=== PATIENT | female | born 1960 | race Caucasian/White ===

== ENCOUNTER → 2022-05-31 13:38 | Outpatient (BNVA) | payer MEDICAID, SELFPAY | PROVIDERS: Visit Provider Urology | DX: N13.30 Unspecified hydronephrosis (principal); C90.00 Multiple myeloma not having achieved remission; Z96.0 Presence of urogenital implants; Q62.5 Duplication of ureter | CPT/HCPCS: 99202 ==

== ENCOUNTER 2022-06-05 09:46 | Outpatient (REF) | payer MEDICAID, SELFPAY ==
[2022-06-05 09:49] LABS: Urine Cytology See Pathology rpt
== END 2022-06-05 09:47 | disposition home or self-care (01) ==
LOC: HO.LNP 09:46
PROVIDERS: Visit Provider Urology
DX: N13.30 Unspecified hydronephrosis (principal)
CPT/HCPCS: 87086; 87088; 87186; 88112

== ENCOUNTER 2022-07-04 06:08 | Day surgery (SDC) | payer MEDICAID, SELFPAY ==
[2022-06-29 11:58] VITALS: BMI 34.1
--- NOTE | 2022-07-03 10:12 | P.CONAN_ITS ---
HPI - Anesthesia Eval Consult details Narrative: 61yo F for Bilateral Cystoscopy, Ureteroroscopy, Retro, Laser with stent exchange [facility] Active Problems Active Problems: All Active Problems (Updated 06/29/22 @ 12:03 by Rosibel Becerra, RENÉ) Hydronephrosis (Acute) Ureteral stent present (Acute) Duplicated left renal collecting system (Acute) Myeloma (Acute) Past Medical History Medical History Encounter for screening Essential hypertension GERD without esophagitis Hx: UTI (urinary tract infection) Hydronephrosis Hydroureter Multiple myeloma Peripheral neuropathy Type 2 diabetes mellitus Uses walker Surgical History Surgical History History of colon resection Hx of bariatric surgery Hx of bilateral oophorectomy Hx of colonoscopy Hx of cystoscopy S/P bilateral breast reduction S/P brachioplasty S/P panniculectomy Social History Social History Are you a primary mall plant caretaker to a significant other at home: No Do you presently have visiting nurse or other home services: Yes ([id number]) Patient Tobacco Use Status: Never used Tobacco Meds Allergies Allergy/AdvReac Type Severity Reaction Status Date / Time codeine AdvReac Unknown Nausea and Verified 07/04/22 06:26 Vomiting oxycodone AdvReac Unknown Nausea and Verified 07/04/22 06:26 Vomiting Home Medications Medication Instructions Recorded Confirmed Last Taken Type aspirin 81 mg tablet,delayed 81 mg PO DAILY 05/30/22 06/29/22 06/27/22 History release diphenhydramine HCl 25 mg tablet 100 mg PO BEDTIME PRN Insomnia 05/30/22 06/29/22 Unknown History (Benadryl Allergy) gabapentin 300 mg capsule 600 mg PO BEDTIME 05/30/22 06/29/22 Unknown History ibuprofen 200 mg tablet 400 mg PO Q6H PRN Pain 05/30/22 06/29/22 06/27/22 History latanoprost 0.005 % eye drops 1 drp ophthalmic (eye) BEDTIME 05/30/22 06/29/22 U nknown History lisinopril 5 mg tablet 5 mg PO DAILY 05/30/22 06/29/22 Unknown History lenalidomide 15 mg capsule See Rx Instructions .Route .COMPLEX 06/29/22 06/29/22 Unknown History (Revlimid) metformin 500 mg tablet 500 mg PO BID 06/29/22 06/29/22 Unknown History Exam Exam Date and Time: July 03, 2022 1012 Height,Weight and Vital Signs: Height 5 ft 5 in Weight 92.986 kg Narrative Narrative: EKG 06/2022 SR @ 81 LAFB Poor R wave progression, nonspecific, ? old anterior infarct Unchanged from 2010 Assessment and Plan Assessment Anesthesia Assessment: Chart Reviewed
[2022-07-04] VITALS (8 sets, daily range): BP systolic 106–140; BP diastolic 62–72; PULSE 68–82; RESP 16–18; TEMP 36.3–36.9; O2SAT 92–98
--- NOTE | ~2022-07-04 | FL_ITS ---
EXAMINATION: XR FLUOROSCOPY WITH IMAGES CLINICAL INFORMATION: Bilateral stones. COMPARISON: None available. TECHNIQUE: Fluoroscopy Supervised By: Dr. Easley. Fluoroscopy Time: 64.6 seconds. Cumulative Dose: 29.95 mGy. Images: 7. FINDINGS: There are 7 digital images obtained. There is contrast opacifying the right kidney pelvis and proximal ureter without any intraluminal filling defect. Duplicated pelvicalyceal system on the left with no intraluminal filling defect. The last image reveals bilateral ureteral stents with the distal ends in the bladder. The proximal ends are not in the [id number]. FL/FL guidance in OR IMPRESSION: Fluoroscopy guidance was provided to referring physician during retrograde pyelogram and intervention.
[2022-07-04 06:43] LABS: Glucose, Whole Blood 145 mg/dL (60-115)
[2022-07-04] MEDS: Lactated Ringers 1,000 ML 100 ML IVCONT (06:54)
--- NOTE | 2022-07-04 07:53 | P.HPSUR_ITS ---
Pre-Procedural Eval Section A Date of Service: 07/04/22 The patient is an INPATIENT: No Changes since office visit: No Cold of Flu in the past 2 weeks, No New Medical Problems, No Changes in Medication and No Patient answered all questions The History & Physical has been completed within 30 days and I have reviewed it.: No Section B Chief Complaint: Hydronephrosis Details of Present Illness: Tiana grier is a 61-year-old female h/o Multiple Myeloma on chemotherapy followed by Dr. Jones-Oncologist The patient has bilateral ureteral stents in place. I have reviewed referral notes which include operative note from 01/20/2022 --left duplicated system left ureteral stent placed into the upper pole moiety, --right hydronephrosis urothelial ureteral wall thickening unclear etiology discussed plan to evaluate and stent exchange. Relevant Family History (Specify if Yes): No Present Medications: see Short Stay Collaborative assessment Allergies: Allergies Allergy/AdvReac Type Severity Reaction Status Date / Time codeine AdvReac Unknown Nausea and Verified 07/04/22 06:26 Vomiting oxycodone AdvReac Unknown Nausea and Verified 07/04/22 06:26 Vomiting Review of Systems Sugical H&P ROS: Negative: Constitution, Cardiovascular, Respiratory, Neurological, Psychiatric, Gastrointestinal, Musculoskeletal and Eyes/Ears/Nose/Throat and Yes, Specify: Hem-Onc and Genitourinary Review of Systems Comment: ROS negative other than stated in HPI Exam Surgical H&P Exam: Normal: HEENT, Normal: Heart, Normal: Lungs, Normal: Extrem ities, Normal: Abdomen, Normal: Skin and Normal: Neurological Plan Diagnosis/Plan: Unchanged I have reviewed the history and physical and performed a pertinent physical examination on my patient. No changes have occurred unless specified. Cystoscopy bilateral retrogrades, possible stent exchange Time Spent With Patient Time: Total time managing care of this patient today ____ minutes.
--- NOTE | 2022-07-04 09:11 | P.OP_ITS ---
Operative Note Operative Note Date of Service: 07/04/22 Narrative: PreOperative Diagnosis:?? Right hydronephrosis, left complete duplicated system, status post bilateral ureteral stent Post Operative Diagnosis:?? ?Right hydronephrosis, left complete duplicated system, status post bilateral ureteral stent Procedure:- cystoscopy, bilateral retrograde bilateral stent removal Surgeon:?Dr Mauro Easley Anesthesia:? General Indications for procedure: Tiana grier is a 61-year-old female h/o Multiple Myeloma on chemotherapy followed by Dr. Jones-Oncologist. The patient has bilateral ureteral stents in place. I have reviewed referral notes and include operative note from 01/20/2022. h/o Left duplicated system left ureteral stent placed into the upper pole moiety, --right hydronephrosis urothelial ureteral wall thickening unclear etiology. FU CAT imaging reported significant improvement in retroperitoneal lymphadenopathy. Procedure: After informed consent was verified the patient was brought to the operating placed on the OR table in supine position.? General Anesthesia was administered per protocol.? The patient was placed in lithotomy position, prepped and draped in the usual sterile fashion.? Safety pause time-out and side of surgery confirmed.? Antibiotics confirmed. Levaquin 500 mg, Ancef 2 g IV. A 22 [place] cystoscope was inserted transurethrally, The bladder was visualized.? Both ureteral stones were seen distally in the bladder. There were edematous changes noted at the ureteral orifices bilaterally as expected from having the stents in place. The? Right ureteral stent was removed. A retrograde examination was performed, there were no filling defects. There was good drainage noted. This was repeated on the left side. The left ureteral stent was removed and a retrograde was done which filled the upper pole moiety. A retrograde was done of the lower pole moiety. There is no evidence of obstruction, therefore stents were not replaced. The bladder was emptied.? The rigid cystoscope was removed. ? 2% lidocaine jelly was inserted transurethrally. The patient tolerated the procedure well and was brought to the recovery room in stable condition. Complications: None Drains: None
[2022-07-04] MEDS: Phenazopyridine HCL 100 MG TABLET PO (09:12)
== END 2022-07-04 10:44 | disposition home or self-care (01) ==
PROVIDERS: PCP Nurse Practitioner Family; Visit Provider Urology
PROC: (CPT 52310; principal; 2022-07-04 07:30)
DX: N13.30 Unspecified hydronephrosis (principal); N20.1 Calculus of ureter; Z96.0 Presence of urogenital implants; Q62.5 Duplication of ureter; C90.00 Multiple myeloma not having achieved remission; I10 Essential (primary) hypertension; E11.9 Type 2 diabetes mellitus without complications; Z79.899 Other long term (current) drug therapy; Z88.8 Allergy status to other drugs, medicaments and biological substances; Z90.49 Acquired absence of other specified parts of digestive tract
CPT/HCPCS: 52310; 82947; 87086; 87088; 87186; C1758; C1769; J0690; J1100; J1940; J1956; J2250; J2370; J2405; J3010; Q9967

== ENCOUNTER → 2022-07-31 08:37 | Outpatient (BNVA) | payer OTHER, SELFPAY | PROVIDERS: PCP Nurse Practitioner Family; Visit Provider Urology | DX: N13.30 Unspecified hydronephrosis (principal); C90.00 Multiple myeloma not having achieved remission; Q62.5 Duplication of ureter | CPT/HCPCS: 51798; 99212 ==